=== PATIENT | male | born 1975 ===

== ENCOUNTER 2020-07-03 16:10 | Emergency (ER) | payer SELFPAY ==
[2020-07-03] MEDS ORDERED: Acetaminophen 500 MG TAB ONE (20:21)
[2020-07-03] MEDS ORDERED: diphenhydrAMINE 50 MG/ML VIAL ONE (20:21)
[2020-07-03] MEDS ORDERED: Metoclopramide HCl 10 MG/2 ML VIAL ONE (20:21)
--- NOTE | 2020-07-03 21:22 | CT ---
CT Brain WO Con History: Headache Comparison: None. Findings: No acute hemorrhage or infarct. No midline shift or mass effect. Ventricular size and extra -axial CSF spaces are normal. Calvarium is intact. Paranasal sinuses and mastoids are clear. Impression: No acute intracranial abnormality.
== END 2020-07-03 21:40 | disposition home or self-care (01) ==
LOC: ERS 16:10
DX: R51.9 Headache, unspecified (principal); F17.200 Nicotine dependence, unspecified, uncomplicated
CPT/HCPCS: 70450; 94760; 96374; 96375; J1200; J2765